=== PATIENT | female | born 1970 | race Caucasian/White ===

== ENCOUNTER 2017-02-24 07:59 | Day surgery (SDC) | payer BC ==
[~2017-02-24 07:59] MED LIST: CEPHALEXIN500 M1 PO; EXCEDRIN MIGRA1 EAC3 PO; IBUPROFEN200 M3 PO; LORATADINE10 M2 PO; TYLENOL EXTRA500 M1 PO; ULTRAM50 M1 PO; XANAX0.5 M1 PO
[2017-02-24 10:03] LABS: BASO % 0.3 % (0-2); EOS % 2.8 % (0-7); EOSINOPHIL ABSOLUTE COUNT 0.2 tho/cmm (0.0-0.7); HCT-HEMATOCRIT 40.9 % (34.0-49.0); HGB-HEMOGLOBIN 14.2 gm/dl (12.0-15.5); IMMATURE GRANULOCYTES ABSOLUTE 0.01 tho/cmm (0-0.03); IMMATURE GRANULOCYTES PERCENT 0.2 % (0-0.3); LYMPH % 33.8 % (20-45); MCH (MEAN CORPUSCULAR HGB) 28.9 pg (28.0-32.0); MCHC MEAN CORPUSCULAR HGB CONC 34.7 % (32.0-36.0); MCV (MEAN CELL VOLUME) 83.1 fl (82.0-96.0); MEAN PLATELET VOLUME 9.5 cmc (9.4-12.4); MONO % 3.3 % (0-12); MONOCYTE ABSOLUTE COUNT 0.2 tho/cmm (0.0-1.2); NEUTROPHIL ABSOLUTE COUNT 3.6 tho/cmm (1.6-8.0); NEUTROPHIL-AUTOMATED 3.6 tho/cmm (1.6-8.0); NEUTROPHILS % 59.6 % (40-80); PLATELET COUNT 211 tho/cmm (150-450); RED BLOOD COUNT 4.92 mil/cmm (4.00-5.20); RED CELL DISTRIBUTION WIDTH 13.4 % (12.4-16.4)
[2017-02-24 10:09] LABS: PROTHROMBIN TIME 11.9 SECONDS (9.0-13.6)
[2017-06-24] MEDS ORDERED: EXCEDRIN MIGRA1 EAC3 PO (14:24)
[2017-06-24] MEDS ORDERED: WELLBUTRIN XL300 M3 PO (14:39)
[2017-06-24] MEDS ORDERED: NEURONTIN300 M1 PO ×2 (14:40)
== END 2017-02-25 09:52 ==
LOC: SHSB 07:59 → CAR1 17:48
PROVIDERS: Radiology Diagnostic Radiology
PROC: 0FB03ZX Excision of Liver, Percutaneous Approach, Diagnostic (ICD-10-PCS; principal; 2017-02-24)
DX: K76.0 Fatty (change of) liver, not elsewhere classified (principal); C50.912 Malignant neoplasm of unspecified site of left female breast; F32.9 Major depressive disorder, single episode, unspecified; F17.210 Nicotine dependence, cigarettes, uncomplicated; J95.811 Postprocedural pneumothorax; E66.01 Morbid (severe) obesity due to excess calories; Z68.41 Body mass index [BMI] 40.0-44.9, adult; Z79.899 Other long term (current) drug therapy; Z80.0 Family history of malignant neoplasm of digestive organs; Z98.890 Other specified postprocedural states
CPT/HCPCS: J1885; J2250; J3010; J7030